=== PATIENT | female | born 1975 | race Caucasian/White ===

== ENCOUNTER → 2023-11-11 | Outpatient (REF) | LOC: M PLAIMG 08:49 | PROVIDERS: ATTEND Internal Medicine | DX: R06.02 Shortness of breath (principal) ==

== ENCOUNTER → 2023-12-24 | Outpatient (REF) | LOC: M PLAIMG 08:21 | PROVIDERS: ATTEND Internal Medicine | DX: R52 Pain, unspecified (principal); M47.9 Spondylosis, unspecified ==